=== PATIENT | male | born 1970 | race Hispanic/Latino ===

== ENCOUNTER 2016-12-20 16:51 | Emergency (ER) | payer BC ==
[2016-12-20] MEDS ORDERED: METHYLPREDNISOLONE ACETATE 80 MG/ML VIAL ONE (19:03)
--- OUTSIDE RECORDS SUMMARY | 2016-12-20 21:59 | XMS REPORT | Continuity of Care Document ---
:1970 Author Organization [facility] ([facility]) Address [address] [place] [address] Phone [phone] Care Team Providers Name Role Phone Gladys Pena Primary Care Provider [phone] Source Comments This disclosure is being made pursuant to the Care Everywhere program, applicable federal and state laws, and may not contain all informaitonavailable regarding this patient.[facility] ([facility]) Active Allergies and Adverse Reactions Allergen Noted Date Severity Reactions Comments Penicillin 06/24/2015 OTHER Current Medications Prescription Sig. Disp. Refills Start Date End Date Status ESCITALOPRAM OXALATE 20 mg 3 05/31/2015 Active tablet LEVOTHYROXINE 50 mcg 6 05/21/2015 Active tablet LOSARTAN-HYDROCHLOROTHIAZI 2 06/03/2015 Active DE 100-25 mg per tablet MELOXICAM 15 mg tablet 2 06/13/2015 Active NADOLOL 40 mg tablet 2 06/03/2015 Active OMEPRAZOLE 40 mg enteric 6 05/31/2015 Active coated capsule ZYLET 0.3-0.5 % ophthalmic 0 05/11/2015 Active solution TRAMADOL 50 mg tablet 2 06/13/2015 Active levofloxacin 500 mg tablet Take 500 mg by Active mouth daily Active Problems Problem Noted Date Open wound of anterior abdominal wall with complication 06/24/2015 Social History Tobacco Use Types Packs/Day Years Used Date Former Smoker Smokeless Tobacco: Never Used Last Filed Vital Signs Vital Sign Reading Time Taken Blood Pressure 163/90 06/24/2015 1:10 PM CDT Pulse 59 06/24/2015 1:10 PM CDT Temperature 36.9 C (98.4 F) 06/24/2015 1:10 PM CDT Respiratory Rate - - Height 1.702 m (5' 7") 06/24/2015 1:10 PM CDT Weight 136.95 kg (301 lb 14.7 oz) 06/24/2015 1:10 PM CDT Body Mass Index 47.28 06/24/2015 1:10 PM CDT Oxygen Saturation - - Plan of Care Health Maintenance Due Date Last Done Comments Hepatitis B Vaccine (1 of 3 - Primary Series) 1970 Tdap Vaccine 1980 Lipid Disorder Screening 1987 MMR Vaccine 1987 Td Vaccine 1987 Influenza Vaccine: Seasonal (#1) 04/25/2016 Results from Last 3 Months Not on file
--- OUTSIDE RECORDS SUMMARY | 2016-12-20 21:59 | XMS REPORT | Continuity of Care Document ---
:1970 Demographics Phone Unavailable Preferred Language Unknown Marital Status Unknown Hoahaoism Affiliation Unknown Race Unknown Ethnic Group Unknown Author Organization [facility] Address Unavailable [address] [address] Care Team Providers Name Role Phone Unavailable Primary Care Provider Unavailable Source Comments This disclosure is being made pursuant to the [employer] program and maynot contain all information available regarding this patient.[facility] Active Allergies and Adverse Reactions Not on File Current Medications Be aware that medications may not be up to date as of this document. Alwaysverify current medications with the patient. Not on file Active Problems Not on file Social History Tobacco Use Types Packs/Day Years Used Date Never Assessed Plan of Care Health Maintenance Due Date Last Done Comments Retired-Pertussis Vaccine Adult 1988 Retired-Tetanus Vaccine Adult 1988 Retired-INFLUENZA VACCINE 05/26/2015 Results from Last 3 Months Not on file
[2016-12-21 00:11] VITALS: BP 186/112
--- NOTE | 2017-01-23 15:32 | ERNOTE ---
Time Seen by Provider: 12/20/16 18:45 Stated Complaint: COUGHING UP BLOOD Presenting Symptoms:: cough Exam Limitations: no limitations Allergies/Adverse Reactions: Allergies erythromycin base Adverse Reaction (Verified 06/18/15 10:33) Nausea Penicillins Adverse Reaction (Verified 06/18/15 10:33) Home Medications: HOME MEDICATIONS Albuterol Sulfate [Proair Respiclick] 90 mcg IH QID PRN 06/18/15 [Last Taken Unknown] Cetirizine HCl [Zyrtec] 10 mg PO DAILY 06/18/15 [Last Taken Unknown] Cyclobenzaprine HCl [Flexeril] 10 mg PO TID PRN 06/18/15 [Last Taken Unknown] Escitalopram Oxalate [Lexapro] 20 mg PO DAILY 06/18/15 [Last Taken Unknown] Fluticasone Propionate [Flonase] 1 spray NS BID 06/18/15 [Last Taken Unknown] Levothyroxine Sodium [Synthroid] 50 mcg PO DAILY 06/18/15 [Last Taken Unknown] Losartan/Hydrochlorothiazide [Hyzaar 100-25 Tablet] 1 each PO DAILY 06/18/15 [ Last Taken Unknown] Meloxicam [Mobic] 7.5 mg PO DAILY 06/18/15 [Last Taken Unknown] Multivit with Iron-Minerals [Compete] 1 each PO DAILY 06/18/15 [Last Taken Unknown] Nadolol [Corgard] 40 mg PO DAILY 06/18/15 [Last Taken Unknown] Omeprazole [Prilosec] 40 mg PO DAILY 06/18/15 [Last Taken Unknown] Tramadol HCl [Rybix Odt] 50 mg PO QID PRN 06/18/15 [Last Taken Unknown] Vitamin B Complex [B Complex] 1 each PO DAILY 06/18/15 [Last Taken Unknown] - History of Present Ilness Timing: intermittent Severity: mild Frequency/Possible Cause: Reports: no prior episodes Associated Symptoms: Reports: cough - with minimal hemoptysis Review of Systems - Review of Systems Constitutional: Present: See HPI EYE: Present: no symptoms reported ENT: Present: no symptoms reported Respiratory: Present: cough, other - trace hemoptysis Cardiology: Present: no symptoms reported Gastrointestinal/Abdominal: Present: no symptoms reported Genitourinary: Present: no symptoms reported Musculoskeletal: Present: no symptoms reported Skin: Present: no symptoms reported Neurological: Present: no symptoms reported Endocrine: Present: no symptoms reported Hematologic/Lymphatic: Present: no symptoms reported Psych: Present: no symptoms reported - Patient's Past Medical History Patient History - Medical: Diabetes Type 2, Depression, Hypothyroidism, Obesity , Other Patient History - Cardiac/Respiratory: Hypertension Patient History - Cancer: No Hx of Cancer Patient History - Surgical Procedures: Gastric Bypass, T & A, Other Patient History - Other: None - Family History Mother Family History - Medical: Diabetes Type 2 Family History - Cardiac/Respiratory: Hypertension Father Family History - Medical: Diabetes Type 2 Family History - Cardiac/Respiratory: Hypertension - Social History Living Situations: home Abuse History: No History of abuse Psych History: Hx of Depression Alcohol Use: occasionally Drug Use: none Physical Exam - Physical Exam General Appearance: Present: wd/wn, alert, moderate distress Eye Exam: Normal inspection: bilateral, PERRL: bilateral Ears, Nose, Throat: Present: normal ENT inspection, H, normal pharynx Neck: Present: normal inspection, nontender Respiratory: Present: no respiratory distress, no accessory muscle use, chest nontender, wheezing Cardiovascular/Chest: Present: regular rate, rhythm, no murmur, normal peripheral pulses Gastrointestinal/Abdominal: Present: normal bowel sounds, nontender, nondistended, soft, no organomegaly Rectal Exam: Present: deferred Back Exam: Present: normal inspection, normal range of motion Extremity Exam: Present: normal inspection, non-tender, no edema, normal range of motion Neurological Exam: Present: alert, oriented, normal mood/affect Skin Exam: Present: normal color, warm/dry Lymphatic Exam: Present: no adenopathy ED Progress - Vital Signs Patient's Vital Signs:: I have reviewed the patient's vital signs. - Progress/Reassessment Progress:: Improved Departure - Departure Clinical Impression: Bronchitis Disposition: Home self-care Condition: Good Referrals: Gladys Pena MD [Primary Care Provider] -
== END 2016-12-20 19:14 | disposition home or self-care (01) ==
LOC: ER 16:51
DX: J40 Bronchitis, not specified as acute or chronic (principal)

== ENCOUNTER 2017-02-12 21:00 | Emergency (ER) | payer BC ==
[2017-02-12 21:15] VITALS: BP 135/99
--- OUTSIDE RECORDS SUMMARY | 2017-02-12 22:27 | XMS REPORT | Continuity of Care Document ---
:1970 Demographics Phone Unavailable Preferred Language Unknown Marital Status Unknown Anglican Affiliation Unknown Race Unknown Ethnic Group Unknown Author Organization [facility] Address Unavailable [address] [place] [address] Care Team Providers Name Role Phone Unavailable Primary Care Provider Unavailable Source Comments This disclosure is being made pursuant to the [email or web address] program and maynot contain all information available regarding this patient.[facility] Active Allergies and Adverse Reactions Not on [...]
--- OUTSIDE RECORDS SUMMARY | 2017-02-12 22:27 | XMS REPORT | Continuity of Care Document ---
:1970 Author Organization [facility] ([facility]) Address [address] [place] [address] Phone [phone] Care Team Providers Name Role Phone Gladys Pena Primary Care Provider [phone] Source Comments This disclosure is being made pursuant to the Care Everywhere program, applicable federal and state laws, and may not contain all informaitonavailable regarding this patient.[facility] ([facility]) Active Allergies and Adverse Reactions Allergen Noted [...]
== END 2017-02-12 22:16 | disposition left against medical advice (07) ==
LOC: ER 21:00
DX: Z53.21 Procedure and treatment not carried out due to patient leaving prior to being seen by health care provider (principal)